=== PATIENT | male | born 1970 | race Caucasian/White ===

== ENCOUNTER 2025-08-14 01:35 | Emergency (ER) | payer SELFPAY ==
[~2025-08-14] VITALS: Ht 157.5 cm; Wt 80.0 kg
[2025-08-14 01:43] VITALS: BP 149/76; PULSE 105; RESP 18; TEMP 36.9; O2SAT 96
== END 2025-08-14 02:10 | disposition left against medical advice (07) ==
LOC: ER 01:35
DX: F10.129 Alcohol abuse with intoxication, unspecified (principal); Z53.21 Procedure and treatment not carried out due to patient leaving prior to being seen by health care provider; Y90.9 Presence of alcohol in blood, level not specified
CPT/HCPCS: 99281